=== PATIENT | male | born 1975 | race Caucasian/White ===

== ENCOUNTER 2025-02-26 09:37 | Day surgery (SDC) | payer OTHER ==
[~2025-02-26 09:37] MED LIST: LIDOCAINE 1% (10MG/ML) FOR IV START INTRADERMA PRN
[2025-02-26 09:54] VITALS: TEMP 98.4
[2025-02-26] MEDS: LACTATED RINGERS 1,000 ML IV ONE (09:54)
[2025-02-26] MEDS: LACTATED RINGERS 1,000 ML IV SCH (09:54)
[2025-02-26] MEDS ORDERED: PROPOFOL 10 MG/ML 20 ML VIAL IV ONE (11:15)
--- NOTE | 2025-02-26 11:20 | P.GSHP ---
History of Present Illness H&P Date: 02/26/25 Chief Complaint: Colon cancer screening 49-year-old male here for colonoscopy. He has not had 1 previously. Denies rectal bleeding or melena. Does have a small hemorrhoid in the right lateral position he believes for the last 2 years that has been bothering him. No famil y history of colon cancer. Past Medical History Past Medical History: No Reported History History of Any Multi-Drug Resistant Organisms: None Reported Additional Past Surgical History / Comment(s): wisdom teeth removed Past Anesthesia/Blood Transfusion Reactions: No Reported Reaction Smoking Status: Current every day smoker Medications and Allergies Home Medications Medication Instructions Recorded Confirmed Type buPROPion HCL [buPROPion HCL XL] 450 mg PO DAILY 02/22/25 02/26/25 History Allergies Allergy/AdvReac Type Severity Reaction Status Date / Time No Known Allergies Allergy Verified 02/26/25 09:50 Surgical - Exam Vital Signs Temp Pulse Resp BP Pulse Ox 98.4 F 115 H 16 122/78 98 02/26/25 09:52 02/26/25 09:52 02/26/25 09:52 02/26/25 09:52 02/26/25 09:52 Physical exam: General: Well-developed, well-nourished HEENT: Normocephalic, sclerae nonicteric Abdomen: Nontender, nondistended Extremities: No edema Neuro: Alert and oriented Assessment and Plan (1) Colon cancer screening Narrative/Plan: Will proceed with colonoscopy at this time. Current Visit: Yes Status: Acute Code(s): Z12.11 - ENCOUNTER FOR SCREENING FOR MALIGNANT NEOPLASM OF COLON SNOMED Code(s): 048277361
--- NOTE | 2025-02-26 11:31 | P.PCN ---
Date of Procedure: 02/26/25 Procedure(s) Performed: PREOPERATIVE DIAGNOSIS: Colon cancer screening POSTOPERATIVE DIAGNOSIS: Small internal hemorrhoids PROCEDURE: Colonoscopy ANESTHESIA: MAC SURGEON: Yinka Chmapagne M.D. SPECIMENS: None ENDOSCOPIC PROCEDURE: The patient was placed on the endoscopy table in the left decubitus position. The Olympus colonoscope was inserted into the anus and passed under direct visualization to the base of the cecum. The appendiceal orifice was visualized. From that point the scope was slowly withdrawn inspecting all surfaces carefully. There were no neoplastic inflammatory or polypoid lesions throughout the cecum, ascending, transverse, descending, sigmoid and rectum. There was no visible diverticulosis noted. Retroflexion at the anus did reveal some prominent internal hemorrhoids. Digital rectal examination was normal. The patient was taken to the recovery room in stable condition per anesthesia guidelines. RECOMMENDATIONS: Patient had a picture that he showed us prior to the procedure showing a hemorrhoid in the right lateral location. This appeared to be an external hemorrhoid by the photo. During the exam however no external hemorrhoids were visualized and the patient did have some prominent internal hemorrhoids on retroflexion. Recommend improved bowel habits and daily fiber. If symptoms persist consider hemorrhoidal banding.
[2025-02-26 12:04] VITALS: BP 128/83; PULSE 71; RESP 14
== END 2025-02-26 12:18 | disposition home or self-care (01) ==
LOC: ORWHC2ENDO 09:37
PROVIDERS: ATTEND Surgery
DX: Z12.11 Encounter for screening for malignant neoplasm of colon (principal); K64.8 Other hemorrhoids; F17.200 Nicotine dependence, unspecified, uncomplicated; Z79.899 Other long term (current) drug therapy
CPT/HCPCS: 45378; J2704